=== PATIENT | female | born 1970 | race Caucasian/White ===

== ENCOUNTER → 2016-11-04 16:48 | Outpatient (CLI) | payer MEDICARE ==
[2011-02-16 03:07] VITALS: BMI 18.8
== END | disposition home or self-care (01) ==
LOC: D.MAMMO 16:15
DX: Z12.31 Encounter for screening mammogram for malignant neoplasm of breast (principal)

== ENCOUNTER 2017-03-24 15:56 | Emergency (ER) | payer MEDICARE ==
[2011-02-16 03:07] VITALS: BMI 18.8
[2017-03-24 18:21] LABS: EOSINOPHILS 2.1 % (0-7); HEMATOCRIT 36.3 % (36.0-48.0); HEMOGLOBIN 11.3 g/dL (12-16); IMMATURE GRANULOCYTES 0.3 % (0-5); LYMPHOCYTES 17.9 % (15-50); MCH 25.7 pg (26.0-34.0); MCHC 31.1 g/dL (31.0-37.0); MCV 82.5 fL (80.0-100.0); MEAN PLATELET VOLUME 9.1 fL (7.4-10.4); MONOCYTES 14.2 % (2-11); NEUTROPHILS 64.5 % (40-80); PLATELET COUNT 530 10x3/uL (130-400); RDW 15.9 % (11.5-14.5); WBC 9.9 10x3/uL (4.8-10.8)
== END 2017-03-24 19:05 | disposition home or self-care (01) ==
LOC: D.ER 15:56
PROVIDERS: Nurse Practitioner Acute Care
DX: J20.9 Acute bronchitis, unspecified (principal); F17.200 Nicotine dependence, unspecified, uncomplicated

== ENCOUNTER → 2018-02-25 14:28 | Outpatient (CLI) | payer MEDICARE ==
[2011-02-16 03:07] VITALS: BMI 18.8
[2018-02-25 15:11] LABS: BASOPHILS 0.7 % (0-2); EOSINOPHILS 1.3 % (0-7); HEMATOCRIT 44.3 % (36.0-48.0); HEMOGLOBIN 13.8 g/dL (12-16); IMMATURE GRANULOCYTES 0.1 % (0-5); LYMPHOCYTES 31.9 % (15-50); MCH 25.9 pg (26.0-34.0); MCHC 31.2 g/dL (31.0-37.0); MCV 83.1 fL (80.0-100.0); MEAN PLATELET VOLUME 9.1 fL (7.4-10.4); MONOCYTES 6.2 % (2-11); NEUTROPHILS 59.8 % (40-80); PLATELET COUNT 577 10x3/uL (130-400); RBC 5.33 10x6/uL (4.00-5.40); RDW 16.4 % (11.5-14.5)
[2018-02-25 15:32] LABS: ALBUMIN 3.9 g/dL (3.4-5.0); ALKALINE PHOSPHATASE 72 U/L (46-116); ALT (SGPT) 20 U/L (10-68); BILIRUBIN - TOTAL 0.25 mg/dL (0.2-1.3); CALC OSMOLALITY 274 mosm/kg (275-300); CALCIUM 9.1 mg/dL (8.5-10.1); CARBON DIOXIDE 21.7 mmol/L (21.0-32.0); CHLORIDE - SERUM 103 mmol/L (98-107); CREATININE - SERUM 0.7 mg/dL (0.6-1.3); POTASSIUM - SERUM 4.2 mmol/L (3.5-5.1); PROTEIN - SERUM 7.6 g/dL (6.4-8.2); SODIUM 138 mmol/L (136-145); THYROID STIMULATING HORMONE 1.27 uIU/mL (0.36-3.74); UREA NITROGEN 16 mg/dL (7-18); eGFR NON AFRICAN AMERICAN > 90 mL/min (90-120)
[2018-02-25 15:37] LABS: GLUCOSE 69 mg/dL (74-106)
== END | disposition home or self-care (01) ==
LOC: D.LAB 14:28
PROVIDERS: Family Medicine
DX: R62.52 Short stature (child) (principal); D51.9 Vitamin B12 deficiency anemia, unspecified; R53.83 Other fatigue

== ENCOUNTER → 2018-02-26 17:35 | Outpatient (CLI) | payer MEDICARE ==
[2011-02-16 03:07] VITALS: BMI 18.8
== END | disposition home or self-care (01) ==
LOC: D.MAMMO 14:00
DX: N63.10 Unspecified lump in the right breast, unspecified quadrant (principal)

== ENCOUNTER → 2018-06-15 11:53 | Outpatient (CLI) | payer MEDICARE ==
[2011-02-16 03:07] VITALS: BMI 18.8
== END | disposition home or self-care (01) ==
LOC: D.US 11:53
DX: R92.8 Other abnormal and inconclusive findings on diagnostic imaging of breast (principal)

== ENCOUNTER → 2018-07-15 14:39 | Outpatient (CLI) | payer MEDICARE ==
[2011-02-16 03:07] VITALS: BMI 18.8
[2018-07-15 15:31] LABS: BASOPHILS 1.2 % (0-2); HEMATOCRIT 37.9 % (36.0-48.0); HEMOGLOBIN 12.9 g/dL (12-16); IMMATURE GRANULOCYTES 0.2 % (0-5); LYMPHOCYTES 33.9 % (15-50); MCH 30.2 pg (26.0-34.0); MCV 88.8 fL (80.0-100.0); MEAN PLATELET VOLUME 8.7 fL (7.4-10.4); MONOCYTES 9.7 % (2-11); PLATELET COUNT 594 10x3/uL (130-400); RBC 4.27 10x6/uL (4.00-5.40); RDW 13.9 % (11.5-14.5)
[2018-07-15 15:47] LABS: ALKALINE PHOSPHATASE 52 U/L (46-116); ALT (SGPT) 15 U/L (10-68); BILIRUBIN - TOTAL 0.35 mg/dL (0.2-1.3); CALC OSMOLALITY 271 mosm/kg (275-300); CARBON DIOXIDE 26.1 mmol/L (21.0-32.0); CHLORIDE - SERUM 102 mmol/L (98-107); CREATININE - SERUM 0.7 mg/dL (0.6-1.3); GLUCOSE 81 mg/dL (74-106); POTASSIUM - SERUM 4.5 mmol/L (3.5-5.1); PROTEIN - SERUM 7.3 g/dL (6.4-8.2); SODIUM 137 mmol/L (136-145); UREA NITROGEN 9 mg/dL (7-18); eGFR NON AFRICAN AMERICAN > 90 mL/min (90-120)
== END | disposition home or self-care (01) ==
LOC: D.LAB 14:39
PROVIDERS: Internal Medicine Hematology & Oncology
DX: N63.0 Unspecified lump in unspecified breast (principal); C44.591 Other specified malignant neoplasm of skin of breast

== ENCOUNTER → 2018-07-21 08:28 | Outpatient (CLI) | payer MEDICARE ==
[2011-02-16 03:07] VITALS: BMI 18.8
== END | disposition home or self-care (01) ==
LOC: D.NM 08:28
DX: C44.591 Other specified malignant neoplasm of skin of breast (principal)

== ENCOUNTER 2018-08-06 05:42 | Day surgery (SDC) | payer MEDICARE ==
[~2018-08-06] VITALS: Ht 134.6 cm; Wt 40.4 kg
--- NOTE | ~2018-08-06 | OP ---
PATIENT NAME: CUCA URBANO MEDICAL RECORD: [id number] LOCATION:D[facility] ADMISSION DATE: SURGEON: GARETH ENG MD DATE OF OPERATION: 08/06/2018 PREOPERATIVE DIAGNOSES: 1. Right breast cancer. 2. Chronic obstructive pulmonary disease. POSTOPERATIVE DIAGNOSES: 1. Right breast cancer. 2. Chronic obstructive pulmonary disease. PROCEDURE: Right lumpectomy with sentinel lymph node biopsy. SURGEON: Gareth Eng MD CLINICAL RESOURCE DIRECTOR: Shira Deluca APRN REPORT OF PROCEDURE: Preoperatively, the patient underwent lymphoscintigraphy. The right breast and axilla were prepped and draped in sterile fashion. A skin incision was made overlying the palpable mass in the right superolateral breast. Electrocautery was used to dissect through the subcutaneous tissues. We used electrocautery to come completely around the tissue down to the fascia of the pectoral muscle. Once this entire lesion was removed with grossly negative borders, then the specimen was marked appropriately and sent off for permanent. We irrigated out the wound with sterile water. We then reapproximated the subcutaneous tissues with interrupted 3-0 Vicryl and the skin was closed with running subcutaneous 5-0 Monocryl. The right axilla was inspected with the Neoprobe. A small skin incision was made on the anterior aspect of the axilla and electrocautery was used to dissect through subcutaneous tissue, through the axillary fascia. Once inside, there was a cluster of about 3 lymph nodes that were found. The highest reading on this was 4500. This clump of lymph nodes were removed with care taken to clip off the lymphatics that were noted. Once this was removed, we reinspected the wound bed and saw there was no other reading higher than 200. The specimen was sent off as a right axillary sentinel lymph node. The wound was then irrigated out with normal saline. The axillary fascia was reapproximated with interrupted 3-0 Vicryl and the subcutaneous tissue was reapproximated with interrupted 3-0 Vicryl. The skin was closed with running subcutaneous 5-0 Monocryl. A total of 8 mL of 1% lidocaine with epinephrine was infused into the surrounding tissues of the 2 wounds and the wounds were dressed appropriately. COMPLICATIONS: None. CONDITION: Stable. ANESTHESIA: General endotracheal and local. BLOOD LOSS: Minimal. TRANSINT:[id number] Voice Confirmation ID: [id number] DOCUMENT ID: [id number] OPERATIVE REPORT [id number] CUCA URBANO CHRISTIAN MD at 1409 CC: RADHA SIFUENTES and COMFORT MONTOYA MD [id number] DICTATION DATE: 08/06/18 1235 DINKER: 08/06/18 1248 [facility] SDC 08/06/18 [place] [id number] [place] [id number]
[~2018-08-06 05:42] MED LIST: ATIVAN2 MG PO; FEXOFENADINE; FISH OIL 1,0001 CA1 PO; PSEUDOEPHEDRINE
[2018-08-06] MEDS ORDERED: VITAMIN C250 MG PO (06:49)
[2018-08-06 06:50] VITALS: BP 123/78; Ht 134.6 cm; Wt 40.4 kg
[2018-08-06] MEDS ORDERED: VITAMIN D31000 UNI2 PO (06:50)
[2018-08-06 07:28] LABS: BASOPHILS 1.3 % (0-2); EOSINOPHILS 3.1 % (0-7); HEMATOCRIT 35.7 % (36.0-48.0); HEMOGLOBIN 12.2 g/dL (12-16); IMMATURE GRANULOCYTES 0.3 % (0-5); LYMPHOCYTES 32.2 % (15-50); MCH 30.5 pg (26.0-34.0); MCHC 34.2 g/dL (31.0-37.0); MCV 89.3 fL (80.0-100.0); MEAN PLATELET VOLUME 8.9 fL (7.4-10.4); MONOCYTES 12.8 % (2-11); NEUTROPHILS 50.3 % (40-80); PLATELET COUNT 591 10x3/uL (130-400); RDW 13.6 % (11.5-14.5); WBC 6.4 10x3/uL (4.8-10.8)
[2018-08-06 07:40] LABS: CALC OSMOLALITY 280 mosm/kg (275-300); CALCIUM 8.4 mg/dL (8.5-10.1); CHLORIDE - SERUM 106 mmol/L (98-107); CREATININE - SERUM 0.7 mg/dL (0.6-1.3); GLUCOSE 82 mg/dL (74-106); POTASSIUM - SERUM 4.1 mmol/L (3.5-5.1); SODIUM 141 mmol/L (136-145); UREA NITROGEN 16 mg/dL (7-18); eGFR NON AFRICAN AMERICAN > 90 mL/min (90-120)
[2018-08-06 07:43] LABS: APTT 32.8 SECONDS (22.8-39.4); INR 1.23 (0.85-1.17)
[2018-08-06 10:46] LABS: HCG URINE NEGATIVE (NEGATIVE)
[2018-08-06] MEDS ORDERED: NORCO 10-325 TA1 TAB PO (12:28)
== END 2018-08-06 14:40 | disposition home or self-care (01) ==
LOC: D.OPS 05:42 → D.PAN 10:00 → D.NM 10:00 → D.OPS 14:40
PROVIDERS: Surgery
DX: C50.911 Malignant neoplasm of unspecified site of right female breast (principal)

== ENCOUNTER → 2018-09-01 11:43 | Outpatient (CLI) | payer MEDICARE ==
[2018-08-06 06:50] VITALS: BMI 22.3
[~2018-09-01 11:43] MED LIST changes: +NORCO 10-325 TA1 TAB PO; +VITAMIN C250 MG PO; +VITAMIN D31000 UNI2 PO
== END | disposition home or self-care (01) ==
LOC: D.US 08-26 10:00
DX: N63.23 Unspecified lump in the left breast, lower outer quadrant (principal)

== ENCOUNTER → 2018-11-30 13:10 | Outpatient (CLI) | payer MEDICARE ==
[2018-08-06 06:50] VITALS: BMI 22.3
[2018-11-30 15:13] LABS: BASOPHILS 0.7 % (0-2); EOSINOPHILS 1.9 % (0-7); HEMATOCRIT 41.5 % (36.0-48.0); IMMATURE GRANULOCYTES 0.4 % (0-5); LYMPHOCYTES 11.7 % (15-50); MCH 29.7 pg (26.0-34.0); MCHC 33.7 g/dL (31.0-37.0); MCV 88.1 fL (80.0-100.0); MEAN PLATELET VOLUME 9.5 fL (7.4-10.4); MONOCYTES 11.6 % (2-11); NEUTROPHILS 73.7 % (40-80); PLATELET COUNT 617 10x3/uL (130-400); RBC 4.71 10x6/uL (4.00-5.40); WBC 13.7 10x3/uL (4.8-10.8)
== END | disposition home or self-care (01) ==
LOC: D.LAB 13:10
PROVIDERS: Internal Medicine Hematology & Oncology
DX: C50.919 Malignant neoplasm of unspecified site of unspecified female breast (principal)

== ENCOUNTER 2019-08-19 18:13 | Emergency (ER) | payer MEDICARE ==
[~2019-08-19] VITALS: Ht 134.6 cm; Wt 36.4 kg
[2019-08-19 18:18] VITALS: Ht 134.6 cm; Wt 36.4 kg
[2019-08-19 19:23] LABS: BASOPHILS 0.5 % (0-2); EOSINOPHILS 1.5 % (0-7); HEMATOCRIT 40.1 % (36.0-48.0); HEMOGLOBIN 13.1 g/dL (12-16); IMMATURE GRANULOCYTES 0.5 % (0-5); LYMPHOCYTES 18.8 % (15-50); MCH 29.2 pg (26.0-34.0); MCHC 32.7 g/dL (31.0-37.0); MCV 89.3 fL (80.0-100.0); MEAN PLATELET VOLUME 8.6 fL (7.4-10.4); MONOCYTES 9.8 % (2-11); NEUTROPHILS 68.9 % (40-80); PLATELET COUNT 626 10x3/uL (130-400); RBC 4.49 10x6/uL (4.00-5.40); RDW 13.4 % (11.5-14.5); WBC 7.4 10x3/uL (4.8-10.8)
[2019-08-19 19:42] LABS: CALC OSMOLALITY 273 mosm/kg (275-300); CALCIUM 8.7 mg/dL (8.5-10.1); CARBON DIOXIDE 24.8 mmol/L (21.0-32.0); CHLORIDE - SERUM 104 mmol/L (98-107); CREATININE - SERUM 0.7 mg/dL (0.6-1.3); GLUCOSE 95 mg/dL (74-106); POTASSIUM - SERUM 4.6 mmol/L (3.5-5.1); SODIUM 136 mmol/L (136-145); UREA NITROGEN 19 mg/dL (7-18); eGFR NON AFRICAN AMERICAN > 90 mL/min (90-120)
[2019-08-19 19:48] LABS: ALBUMIN 3.7 g/dL (3.4-5.0); ALKALINE PHOSPHATASE 69 U/L (46-116); ALT (SGPT) 12 U/L (10-68); BILIRUBIN - TOTAL 0.18 mg/dL (0.2-1.3); PROTEIN - SERUM 7.2 g/dL (6.4-8.2)
[2019-08-19 20:00] VITALS: BP 135/89
== END 2019-08-19 20:40 | disposition left against medical advice (07) ==
LOC: D.ER 18:13
PROVIDERS: Family Medicine
DX: R52 Pain, unspecified (principal)

== ENCOUNTER 2019-08-26 09:00 | Outpatient (CLI) | payer MEDICARE | END 2019-08-26 10:00 | disposition home or self-care (01) | LOC: D.MAMMO 09:00 | PROVIDERS: ATTEND Nurse Practitioner Family | DX: R92.8 Other abnormal and inconclusive findings on diagnostic imaging of breast (principal) ==